=== PATIENT | female | born 1965 | race Caucasian/White ===

== ENCOUNTER 2024-06-27 18:23 | Emergency (ER) | payer BC ==
[~2024-06-27] VITALS: Ht 152.4 cm; Wt 86.2 kg
[2024-06-27] MEDS: KETOROLAC TROMETHAMINE 30 MG/ML VIAL IV STA (20:58)
[2024-06-27 22:00] VITALS: PULSE 78; RESP 14; TEMP 98.9
[2024-06-27] MEDS ORDERED: BACTRIM DS TAB1 EACH PO (22:01)
[2024-06-27] MEDS ORDERED: COLACE100 MG/10 PO (22:01)
[2024-06-27 22:08] VITALS: BP 121/70; PULSE 78; RESP 16; O2SAT 99
== END 2024-06-27 22:10 | disposition home or self-care (01) ==
LOC: FSED 19:08
DX: R59.1 Generalized enlarged lymph nodes (principal); K59.00 Constipation, unspecified
CPT/HCPCS: 74176; 80048; 80076; 85025; 99284; J1885